=== PATIENT | female | born 1965 | race Caucasian/White ===

== ENCOUNTER 2024-06-02 12:20 | Emergency (ER) | payer OTHER ==
[2024-06-02 12:24] VITALS: BP 123/84; PULSE 79; RESP 18; TEMP 97.6; BMI 24.7
[2024-06-02] MEDS ORDERED: KETOROLAC TROMETHAMINE 30 MG/1 ML VIAL ONE (13:04)
[2024-06-02] MEDS: KETOROLAC TROMETHAMINE 30 MG/1 ML VIAL IM ONE (13:12)
[2024-06-02] MEDS ORDERED: ACETAMINOPHEN 500 MG TABLET (FP) ONE (14:41)
[2024-06-02] MEDS: ACETAMINOPHEN 500 MG TABLET (FP) PO ONE (14:43)
== END 2024-06-02 15:20 | disposition home or self-care (01) ==
LOC: JERFT 12:20
PROC: 2W3DX1Z Immobilization of Left Lower Arm using Splint (ICD-10-PCS; principal; 2024-06-02)
PROC: 3E0233Z Introduction of Anti-inflammatory into Muscle, Percutaneous Approach (ICD-10-PCS; 2024-06-02)
DX: S62.307A Unspecified fracture of fifth metacarpal bone, left hand, initial encounter for closed fracture (principal); S89.92XA Unspecified injury of left lower leg, initial encounter; W01.0XXA Fall on same level from slipping, tripping and stumbling without subsequent striking against object, initial encounter; Y99.0 Civilian activity done for income or pay
CPT/HCPCS: 73110-TC-LT-FY; 73130-TC-LT-FY; 73560-TC-LT-FY; 99284-25